=== PATIENT | female | born 2000 | race Two or more races ===

== ENCOUNTER 2022-04-15 14:02 | Emergency (ER) | payer OTHER, SELFPAY ==
[2022-04-15 14:12] VITALS: BP 141/73; PULSE 88; RESP 18; TEMP 37.2; O2SAT 98
--- NOTE | 2022-04-15 14:46 | ED.URI ---
HPI - URI/Sore Throat General Chief Complaint: Upper Respiratory Infection Stated Complaint: Congestion/feels like fb in throat Time Seen by Provider: 04/15/22 14:46 Source: patient and RN notes reviewed Mode of arrival: ambulatory Limitations: no limitations History of Present Illness HPI Narrative: 21-year-old female presents concern for 8-day history of nasal congestion, postnasal drainage, cough, chest congestion, ear pressure and pain. She reports sore throat. Reports a feeling of something being in her throat when she swallows. She denies any history of foreign body being lodged in her throat. Reports has been taking DayQuil and NyQuil without relief. MD elicited complaint: sore throat and nasal congestion Related Data Allergies Allergy/AdvReac Type Severity Reaction Status Date / Time No Known Allergies Allergy Unknown Unverified 08/01/19 09:32 Review of Systems Review of Systems: CONSTITUTIONAL: Reports malaise. Denies chills, sweats, or fever. EYES: Denies visual changes, redness, or discharge. ENT: Reports rhinorrhea, congestion, sinus pain, otalgia and sore throat. CARDIOVASCULAR: Denies chest pain, palpitations, or edema. RESPIRATORY: Reports cough, chest congestion. Denies dyspnea. GASTROINTESTINAL: Denies abdominal pain, nausea, vomiting, diarrhea SKIN: Denies rash or itching. MUSCULOSKELETAL: Reports myalgia. NEUROLOGIC: Denies headache. All systems reviewed & are unremarkable except as noted in HPI and below PMFSH Comments At time of signature, agree with nursing past medical, surgical, social and family history. There is no relevant family history pertinent to the presenting complaint Exam Narrative: GENERAL: Nontoxic-appearing and in no acute distress. HEAD: Normocephalic EYES: PERRLA, conjunctivae clear ENT: Nares clear, turbinates edematous and erythematous, nose. Mucous membranes moist. TM pearly ellsi with dull light reflex bilaterally; no tragal tenderness. Oropharynx erythematous without lesions. Tonsils not enlarged and without exudate, no drooling, no hoarseness, no trismus, uvula midline. NECK: Supple. No lymphadenopathy CHEST: Clear to auscultation, breath sounds equal. No wheezing, rhonchi, rales, or stridor. No respiratory distress, speaks in full sentences. HEART: Regular rate and rhythm. No murmur heard. SKIN: Warm, dry, no rash. NEURO: Alert and oriented x3. PSYCH: Normal mood and affect Course Course Emergency Course: Patient is aware of diagnosis, understands and agrees to treatment plan. Anticipatory guidance given. Patient agrees to follow-up as directed and is aware of reasons to seek care at the emergency department. Portions of this record may have been created with voice recognition software Level of Care: Express Care Visit Vital Signs Vital signs: Vital Signs Temperature 99.0 F 04/15/22 14:12 Pulse Rate 88 04/15/22 14:12 Respiratory Rate 18 04/15/22 14:12 Blood Pressure 141/73 H 04/15/22 14:12 Pulse Oximetry 98 04/15/22 14:12 Oxygen Delivery Room Air 04/15/22 14:12 Temperature 99.0 F 04/15/22 14:12 Pulse Rate 88 04/15/22 14:12 Respiratory Rate 18 04/15/22 14:12 Blood Pressure 141/73 H 04/15/22 14:12 Pulse Oximetry 98 04/15/22 14:12 Oxygen Delivery Room Air 04/15/22 14:12 Reviewed. MDM - URI/Sore Throat MDM Narrative Medical decision making narrative: Differential diagnosis considered: Harris virus, strep pharyngitis, allergic rhinitis, upper respiratory tract infection, sinusitis, rhinosinusitis, nasopharyngitis. viral pharyngitis, otitis media, otitis externa, pneumonia, bronchitis, viral cough syndrome, viral syndrome, and influenza. Exam findings show no acute concerns or changes; patient is non-toxic appearing and is in no distress. Patient is appropriate for outpatient treatment and follow-up. Lab Data Attestation: I reviewed the patient's lab results. Critical Care Time Critical Care Time Critical Care Time: No
== END 2022-04-15 15:02 | disposition home or self-care (01) ==
PROVIDERS: Emergency Provider Nurse Practitioner
DX: J32.9 Chronic sinusitis, unspecified (principal); J40 Bronchitis, not specified as acute or chronic
CPT/HCPCS: 99213; G0463

== ENCOUNTER 2023-03-25 15:30 | Emergency (ER) | payer OTHER, SELFPAY ==
[2023-03-25 15:36] VITALS: BP 115/80; PULSE 99; RESP 16; TEMP 36.4; O2SAT 98
--- NOTE | 2023-03-25 15:49 | ED.WOUNDLAC ---
HPI - Wound/Laceration General Chief Complaint: Wound/Laceration Stated Complaint: remove stitches finger Source: patient and RN notes reviewed Limitations: no limitations History of Present Illness HPI narrative: Patient is a 22-year-old female who presents today [facility] with request for suture removal. Patient states that she had 12 sutures placed into two different wounds on the right hand on mother's day. Patient states that she was cleaning a knife when she accidentally cut herself on the right hand in [address]. Patient states that she had 6 sutures placed in each wound; one wound on the dorsal surface of the right hand and one wound at the base of the second digit of the right hand. Wounds are healing well with no signs of infection. No active drainage. Related Data Allergies Allergy/AdvReac Type Severity Reaction Status Date / Time No Known Allergies Allergy Unknown Unverified 08/01/19 09:32 Review of Systems Review of Systems: CONSTITUTIONAL: Denies fever, chills, or sweats. EYES: Denies visual changes, redness, or discharge. ENT: Denies otalgia and sore throat CARDIOVASCULAR: Denies chest pain, palpitations, or edema. RESPIRATORY: Denies cough or dyspnea. GASTROINTESTINAL: Denies abdominal pain, nausea, vomiting, or diarrhea. GENITOURINARY: Denies dysuria or hematuria. SKIN: Denies rash or itching. Healing lacerations noted to right hand with 6 sutures present in each of the two wounds. MUSCULOSKELETAL: Denies back pain, joint pain, or myalgia. NEUROLOGIC: Denies headache, numbness, or weakness. Pertinent positives per HPI. PMFSH Comments At the time of my signature, I reviewed and agree with the nursing past medical, surgical, social, and family history. There is no relevant family history pertinent to the patient complaint. Exam Narrative: GENERAL: This is a well-nourished, well-developed patient, in no apparent distress. HEAD: normocephalic, atraumatic. EYES: Sclera clear/white. Vision is grossly intact. EARS: External ears normal, auditory canals clear and without drainage, TMs normal without perforation. Hearing grossly intact. NOSE: External nose normal with no obvious nasal discharge, nares without redness, no rhinorrhea. THROAT: Mucous membranes moist, posterior pharynx clear. NECK: Neck supple, non-tender without lymphadenopathy, masses or thyromegaly. CARDIOVASCULAR: Regular rate and rhythm without murmurs, gallops, or rubs. RESPIRATORY: Clear to auscultation. Breath sounds equal bilaterally. No wheezes, rales, or rhonchi. GASTROINTESTINAL: Abdomen soft, non-tender, nondistended. Bowel sounds are active. No hepato-splenomegaly, or palpable masses. No guarding. SKIN: warm, intact with no suspicious lesions or rash, good texture and turgor. 3 cm healing laceration to the right hand and 3 cm laceration to the base of the second digit on the right hand; no signs of infection; no active drainage. NEURO: awake, alert, and oriented to person, place and time. There were no obvious focal neurologic abnormalities. Course Course Level of Care: Express Care Visit Vital Signs Vital signs: Vital Signs Temperature 97.5 F L 03/25/23 15:36 Pulse Rate 99 03/25/23 15:36 Respiratory Rate 16 03/25/23 15:36 Blood Pressure 115/80 03/25/23 15:36 Pulse Oximetry 98 03/25/23 15:36 Oxygen Delivery Room Air 03/25/23 15:36 Temperature 97.5 F L 03/25/23 15:36 Pulse Rate 99 03/25/23 15:36 Respiratory Rate 16 03/25/23 15:36 Blood Pressure 115/80 03/25/23 15:36 Pulse Oximetry 98 03/25/23 15:36 Oxygen Delivery Room Air 03/25/23 15:36 Reviewed Procedures Other Procedure Procedure 1: Other Procedure: Suture removal MDM - Wound/Laceration MDM Narrative Medical decision making narrative: 12 sutures were removed. Wounds are healing well without signs of infection. Patient was advised to continuously monitor wounds for infection. Advised to keep wounds rodney
== END 2023-03-25 15:52 | disposition home or self-care (01) ==
PROVIDERS: Emergency Provider Nurse Practitioner; PCP Physician Assistant
DX: S61.411D Laceration without foreign body of right hand, subsequent encounter (principal); W26.0XXD Contact with knife, subsequent encounter
CPT/HCPCS: 99211; G0463

== ENCOUNTER 2023-11-30 14:34 | Emergency (ER) | payer OTHER, SELFPAY ==
[2023-11-30 14:40] VITALS: BP 135/83; PULSE 92; RESP 20; TEMP 36.8; O2SAT 95
--- NOTE | 2023-11-30 15:11 | ED.GENADULT ---
HPI - General Adult General Chief complaint: Ear Stated complaint: ears Source: patient Mode of arrival: ambulatory Limitations: no limitations History of Present Illness HPI narrative: Patient presents for evaluation of left ear pain and left lower dental pain. She has experienced left lower dental pain for a week. Left ear started hurting 3 days ago. She feels a pressure in the left ear. Denies tinnitus, hearing loss, or drainage from the ear. No fever, chills, nausea, vomiting, or sore throat. She has been taking ibuprofen for her pain which seems to help. No tobacco use. She does use marijuana. She is planning on scheduling an appointment with a dentist. Application of pressure of her hand to her mandible seems to alleviate her pain. She rates her pain 6/10 in severity in both the tooth and the ear describes both sensations as throbbing. Related Data Allergies Allergy/AdvReac Type Severity Reaction Status Date / Time No Known Allergies Allergy Unknown Verified 09/29/23 09:48 Review of Systems Review of Systems: CONSTITUTIONAL: Denies fever, chills, or sweats. EYES: Denies visual changes, redness, or discharge. ENT: Reports left ear pain and left lower dental pain. Denies tinnitus, hearing loss and drainage from the ear. CARDIOVASCULAR: Denies chest pain, palpitations, or edema. RESPIRATORY: Denies cough or dyspnea. GASTROINTESTINAL: Denies abdominal pain, nausea, vomiting, or diarrhea. GENITOURINARY: Denies dysuria or hematuria. SKIN: Denies rash or itching. MUSCULOSKELETAL: Denies back pain, joint pain, or myalgia. NEUROLOGIC: Denies headache, numbness, dizziness, or weakness. PSYCHIATRIC: Denies anxiety or depression. [facility] Past Medical History Medical History No pertinent past medical history Surgical History Surgical History H/O gynecological procedure Nexplanon insertion 2019 Nexplanon removal 2022 History of delivery x 2 Family History Family History Father Hypertension Other Breast cancer Social History Social History Smoking status: Never smoker Alcohol intake: current Alcohol use details: occasional Substance use: current Substance use type: marijuana Lack of Transportation: No Lack of Food: Often True Current Housing: I Have Housing Concerned About Future Housing: No Difficulty Paying Gas/Electric Bills: No Difficulty Paying for Meds: No Currently Unemployed: No Education: Decline to Answer Difficulty w/ Childcare or Family Care: No Living arrangements: with family Occupation/Education: unemployed Gender identity (if verbalized by the patient): Female Sexual Orientation (if Verbalized by the Patient): Straight or Heterosexual Exam Narrative: GENERAL: Well-appearing, well-nourished, and in no acute distress. HEAD: Normocephalic, atraumatic. EYES: PERRLA and EOMI. ENT: Nares clear, no rhinorrhea or epistaxis. Mucous membranes moist. Oropharynx without tonsillar hypertrophy exudate or other lesions. Left TM is erythematous and bulging. There is no visible or palpable dental abscess NECK: Supple. No adenopathy or masses. No carotid bruits or JVD CHEST: Clear to auscultation. No respiratory distress. No wheezes rales or rhonchi HEART: Regular rate and rhythm. No murmur heard. Normal peripheral pulses. ABDOMEN: Soft, nontender, nondistended, normal active bowel sounds. EXTREMITIES: Normal range of motion. No edema. SKIN: Warm, dry, no rash. NEURO: No focal deficits. Alert and oriented x3. PSYCH: Normal mood and affect. Course Course Emergency Course: This is a 23-year-old female who presented for evaluation of left lower dental pain and left ear pain. She is planning on scheduling
== END 2023-11-30 14:56 | disposition home or self-care (01) ==
PROVIDERS: Emergency Provider Nurse Practitioner
DX: H66.92 Otitis media, unspecified, left ear (principal); K08.89 Other specified disorders of teeth and supporting structures
CPT/HCPCS: 99213; G0463

== ENCOUNTER 2024-06-03 17:39 | Outpatient (CLI) | payer OTHER, SELFPAY ==
[2024-06-03 18:17] LABS: Beta HCG Quantitative 76.91 mIU/ML
== END 2024-06-03 17:40 | disposition home or self-care (01) ==
LOC: ANHLAB 17:42
PROVIDERS: PCP Physician Assistant; Visit Provider Obstetrics & Gynecology
DX: N91.2 Amenorrhea, unspecified (principal)
CPT/HCPCS: 36415; 84702

== ENCOUNTER 2024-06-07 14:43 | Outpatient (CLI) | payer OTHER, SELFPAY ==
[2024-06-07 15:28] LABS: Beta HCG Quantitative 604.84 mIU/ML
== END 2024-06-07 14:44 | disposition home or self-care (01) ==
LOC: ANHLAB 14:45
PROVIDERS: PCP Physician Assistant; Visit Provider Obstetrics & Gynecology
DX: N94.89 Other specified conditions associated with female genital organs and menstrual cycle (principal)
CPT/HCPCS: 36415; 84702

== ENCOUNTER 2024-06-15 15:10 | Outpatient (CLI) | payer OTHER, SELFPAY | END 2024-06-15 15:11 | disposition home or self-care (01) | LOC: ANHLAB 15:12 | PROVIDERS: PCP Physician Assistant; Visit Provider Student in an Organized Health Care Education/Training Program | DX: O02.1 Missed abortion (principal) | CPT/HCPCS: 36415; 84702 ==

== ENCOUNTER 2024-06-17 09:37 | Outpatient (CLI) | payer OTHER, SELFPAY | END 2024-06-17 09:38 | disposition home or self-care (01) | PROVIDERS: PCP Physician Assistant; Visit Provider Student in an Organized Health Care Education/Training Program | DX: O20.0 Threatened abortion (principal); Z3A.00 Weeks of gestation of pregnancy not specified | CPT/HCPCS: 36415; 84702 ==

== ENCOUNTER 2024-06-22 10:57 | Outpatient (CLI) | payer OTHER, SELFPAY ==
[2024-06-22 11:36] LABS: Basophils Absolute Auto 0.1 K/mm3 (0.0-0.1); Basophils Percent Auto 0.7 % (0.2-1.2); Eosinophils Absolute Auto 0.2 K/mm3 (0-0.3); Eosinophils Percent Auto 1.3 % (0-4.4); Hematocrit 42.3 % (37.0-47.0); Hemoglobin 13.6 g/dL (12.0-15.0); Immature Granulocyte Absolute 0.21 K/mm3 (0.00-0.031); Immature Granulocyte Percent A 1.7 % (0-0.5); Lymphocytes Percent Auto 22.3 % (18.3-44.2); Mean Corpuscular HGB Conc 32.2 g/dl (32-36); Mean Corpuscular Hemoglobin 26.1 pg (26-34); Mean Corpuscular Volume 81.2 fl (80-100); Monocytes Absolute Auto 0.6 K/mm3 (0.1-0.6); Monocytes Percent Auto 4.8 % (2.6-8.5); Neutrophils Absolute Auto 8.7 K/mm3 (1.3-6.7); Neutrophils Percent Auto 69.2 % (45.5-73.1); Platelet Count Result 247 k/mm3 (150-375); Red Blood Count 5.21 M/mm3 (4.2-5.4); Red Cell Distribution Width 13.5 % (11.5-14.5); White Blood Count 12.6 K/mm3 (4.5-10.0)
[2024-06-22 11:48] LABS: Creatinine Urine 204.4 mg/dL
[2024-06-22 11:48] LABS: Alanine Aminotransferase 39 U/L (6-35); Albumin Level 4.4 g/dL (3.5-5.1); Alkaline Phosphatase 50 U/L (38-126); Anion Gap 10 mmol/L (4-12); Aspartate Amino Transferase 30 U/L (14-36); Bilirubin,Total 0.3 mg/dL (0.2-1.3); Blood Urea Nitrogen 8 mg/dL (7-17); Calcium 9.9 mg/dL (8.4-10.2); Carbon Dioxide 24 mmol/L (22-30); Chloride 100 mmol/L (98-107); Estimated Glomerular Filt Rate > 60; Glucose 101 mg/dL (65-110); Potassium 4.2 mmol/L (3.4-5.0); Sodium 134 mmol/L (137-145); Uric Acid 4.8 mg/dL (2.5-7.5)
[2024-06-22 11:55] LABS: Total Protein Urine Random < 5 mg/dL
[2024-06-22 12:25] LABS: Hepatitis B Surface Antigen Negative (Negative); Rubella IgG Antibody 2.6 IU/ML
[2024-06-22 12:28] LABS: HIV 1/2 Ab P24 Ag Result Negative (Negative)
[2024-06-23 11:11] LABS: Rapid Plasma Reagin Non-Reactive (NonReactive)
[2024-06-23 14:09] LABS: CMV IgG Antibody >10.00 U/mL
[2024-06-23 14:18] LABS: Varicella IgG Antibody <135.00 index
== END 2024-06-22 10:58 | disposition home or self-care (01) ==
PROVIDERS: PCP Physician Assistant; Visit Provider Student in an Organized Health Care Education/Training Program
DX: N94.89 Other specified conditions associated with female genital organs and menstrual cycle (principal)
CPT/HCPCS: 36415; 80053; 81050; 82570; 84156; 84550; 84702; 85025; 85660; 86592; 86644; 86703; 86747; 86762; 86787; 87340; G0432

== ENCOUNTER 2024-08-23 14:03 | Outpatient (CLI) | payer OTHER, SELFPAY | END 2024-08-23 14:04 | disposition home or self-care (01) | LOC: ANHLAB 14:04 | PROVIDERS: PCP Physician Assistant; Visit Provider Student in an Organized Health Care Education/Training Program | DX: N91.2 Amenorrhea, unspecified (principal) | CPT/HCPCS: 36415; 84702 ==

== ENCOUNTER 2024-08-25 09:44 | Outpatient (CLI) | payer OTHER, SELFPAY | END 2024-08-25 09:45 | disposition home or self-care (01) | PROVIDERS: PCP Physician Assistant; Visit Provider Student in an Organized Health Care Education/Training Program | DX: N91.2 Amenorrhea, unspecified (principal) | CPT/HCPCS: 36415; 84702 ==

== ENCOUNTER 2024-09-07 10:06 | Outpatient (CLI) | payer OTHER, SELFPAY ==
[2024-09-07 11:34] LABS: Basophils Absolute Auto 0.1 K/mm3 (0.0-0.1); Basophils Percent Auto 0.5 % (0.2-1.2); Eosinophils Absolute Auto 0.1 K/mm3 (0-0.3); Eosinophils Percent Auto 1.1 % (0-4.4); Immature Granulocyte Absolute 0.15 K/mm3 (0.00-0.031); Immature Granulocyte Percent A 1.3 % (0-0.5); Lymphocytes Absolute Auto 2.75 K/mm3 (0.9-3.2); Lymphocytes Percent Auto 23.1 % (18.3-44.2); Mean Corpuscular HGB Conc 33.3 g/dl (32-36); Mean Corpuscular Hemoglobin 26.7 pg (26-34); Mean Corpuscular Volume 80.2 fl (80-100); Monocytes Absolute Auto 0.6 K/mm3 (0.1-0.6); Monocytes Percent Auto 4.7 % (2.6-8.5); Neutrophils Absolute Auto 8.3 K/mm3 (1.3-6.7); Neutrophils Percent Auto 69.3 % (45.5-73.1); Platelet Count Result 258 k/mm3 (150-375); Red Blood Count 5.24 M/mm3 (4.2-5.4); Red Cell Distribution Width 13.6 % (11.5-14.5); White Blood Count 11.9 K/mm3 (4.5-10.0)
[2024-09-07 11:56] LABS: Glucose 1 Hour PP 50gm Dose 133 mg/dL
[2024-09-07 12:38] LABS: HIV 1/2 Ab P24 Ag Result Negative (Negative)
[2024-09-07 12:45] LABS: Hepatitis B Surface Antigen Negative (Negative); Rubella IgG Antibody 1.9 IU/ML
[2024-09-08 09:48] LABS: Rapid Plasma Reagin Non-Reactive (NonReactive)
[2024-09-08 15:47] LABS: CMV IgG Antibody >10.00 U/mL; Varicella IgG Antibody <1.00 S/CO
== END 2024-09-07 10:07 | disposition home or self-care (01) ==
LOC: ANHLAB 10:07
PROVIDERS: PCP Physician Assistant; Visit Provider Student in an Organized Health Care Education/Training Program
DX: N94.89 Other specified conditions associated with female genital organs and menstrual cycle (principal)
CPT/HCPCS: 36415; 82947; 84702; 85025; 85660; 86592; 86644; 86703; 86747; 86762; 86787; 86850; 86900; 86901; 87086; 87340; G0432

== ENCOUNTER 2024-09-09 09:23 | Outpatient (CLI) | payer OTHER, SELFPAY ==
[2024-09-09 09:52] LABS: Glucose Fasting Gestational 99 mg/dL (>/=95)
[2024-09-09 11:30] LABS: Glucose 1 Hour Gest 155 mg/dL (>/=180)
[2024-09-09 12:28] LABS: Glucose 2 Hour Gest 126 mg/dL (>/= 155)
[2024-09-09 13:17] LABS: Glucose 3 Hour Gest 70 mg/dL (>/=140)
== END 2024-09-09 09:24 | disposition home or self-care (01) ==
LOC: ANHLAB 09:24
PROVIDERS: PCP Physician Assistant; Visit Provider Student in an Organized Health Care Education/Training Program
DX: R73.09 Other abnormal glucose (principal)
CPT/HCPCS: 36415; 82951; 82952